=== PATIENT | male | born 1990 | race Hispanic/Latino ===

== ENCOUNTER 2017-07-26 10:39 | Emergency (ER) | payer OTHER ==
[~2017-07-26] VITALS: Ht 172.7 cm; Wt 58.2 kg
[~2017-07-26 10:39] MED LIST: ELIMITE5 % TOP; HYDROXYZ HCL25 MG PO; MOTRIN600 MG PO; NAPROSYN500 MG OR; TOBREX OPTH DROP5 ML OP; ULTRAM50 MG OR
[2017-07-26 11:19] LABS: HEMATOCRIT 45.8 % (39.0-50.0); HEMOGLOBIN 16.3 g/dl (14.0-18.0); IMMATURE GRANULOCYTES 0.4 % (0.0-1.0); MEAN CELL VOLUME 87.7 fL CALC (80.0-100.0); MEAN CORPUSCULAR HGB 31.2 pG CALC (26.0-32.0); MEAN CORPUSCULAR HGB CONC 35.6 g/L CALC (32.0-36.0); NEUT# 5.96 thou/uL (1.82-7.42); RED BLOOD COUNT 5.22 mill/uL (4.70-6.10); RED CELL DISTRI WIDTH 12.5 % (11.5-15.5)
[2017-07-26 11:38] LABS: ALKALINE PHOSPHATASE 91 u/l (38-126); ANION GAP 22 (6-22 (CALC)); BILIRUBIN, TOTAL 0.6 mg/dL (0.0-1.4); BUN 9 mg/dL (9-20); BUN/CREATININE RATIO 12 (12-20 (CALC)); CARBON DIOXIDE 24 mmol/l (22-30); CHLORIDE 106 mmol/l (95-108); CREATININE 0.8 mg/dL (0.7-1.3); GFR > 60 ML/MIN (>=60 (CALC)); GFR FOR AFR.AMER. > 60 ML/MIN (>=60 (CALC)); LIPASE 46 u/l (23-300); POTASSIUM 4.2 mmol/l (3.5-5.1); SGOT/AST 27 u/l (17-59); SGPT/ALT 32 u/l (21-72); SODIUM 147 mmol/l (137-146); TOTAL PROTEIN 8.1 g/dL (6.3-8.2)
[2017-07-26 12:56] LABS: BARBITURATES NEGATIVE (NEGATIVE); COCAINE NEGATIVE (NEGATIVE); METHADONE NEGATIVE (NEGATIVE); OXCYCODONE NEGATIVE (NEGATIVE); TETRAHYDROCANNABIONOL POSITIVE (NEGATIVE); TRICYLIC ANTIDEPRESSANTS NEGATIVE (NEGATIVE)
[2017-07-26] MEDS ORDERED: ONDANSETRON4 MG PO (13:33)
[2017-07-26] MEDS ORDERED: PROTONIX40 MG PO (13:33)
[2017-07-26 14:00] VITALS: BP 89/50
== END 2017-07-26 14:13 | disposition home or self-care (01) | DRG 392 ==
LOC: ED 10:39
PROVIDERS: Emergency Medicine
DX: K29.20 Alcoholic gastritis without bleeding (principal); R10.13 Epigastric pain; R11.2 Nausea with vomiting, unspecified

== ENCOUNTER 2020-03-11 04:37 | Emergency (ER) | payer SELFPAY ==
[~2020-03-11] VITALS: Ht 172.7 cm; Wt 59.0 kg
[~2020-03-11 04:37] MED LIST changes: +ONDANSETRON4 MG PO; +PROTONIX40 MG PO
[2020-03-11 05:18] LABS: HEMATOCRIT 51.4 % (39.0-50.0); HEMOGLOBIN 17.5 g/dl (14.0-18.0); IMMATURE GRANULOCYTES 0.2 % (0.0-5.0); MEAN CELL VOLUME 90.7 fL CALC (80.0-100.0); MEAN CORPUSCULAR HGB 30.9 pG CALC (26.0-32.0); NEUT# 11.01 thou/uL (1.82-7.42); RED BLOOD COUNT 5.67 mill/uL (4.70-6.10); RED CELL DISTRI WIDTH 12.1 % (11.5-15.5)
[2020-03-11 05:36] LABS: ALBUMIN 4.6 g/dL (3.2-5.0); ALKALINE PHOSPHATASE 79 u/l (38-126); AMYLASE 117 u/l (30-110); ANION GAP 13 (6-22 (CALC)); BILIRUBIN, TOTAL 0.7 mg/dL (0.0-1.4); BUN 14 mg/dL (9-20); BUN/CREATININE RATIO 14 (12-20 (CALC)); CARBON DIOXIDE 27 mmol/l (22-30); CHLORIDE 104 mmol/l (95-108); GFR > 60 ML/MIN (>=60 (CALC)); GFR FOR AFR.AMER. > 60 ML/MIN (>=60 (CALC)); LIPASE 71 u/l (23-300); POTASSIUM 3.5 mmol/l (3.5-5.1); SGOT/AST 32 u/l (17-59); SODIUM 141 mmol/l (137-146); TOTAL PROTEIN 7.7 g/dL (6.3-8.2)
[2020-03-11 07:12] LABS: URINE BILIRUBIN - DIPSTICK NEGATIVE (NEGATIVE); URINE BLOOD DIPSTICK TRACE-LYSED (NEGATIVE); URINE COLOR YELLOW; URINE GLUCOSE - DIPSTICK NEGATIVE (NEGATIVE); URINE KETONE TRACE mg/dL (NEGATIVE); URINE LEUK ESTERASE NEGATIVE (NEGATIVE); URINE NITRITE - DIPSTICK NEGATIVE (Negative); URINE PROTEIN - DIPSTICK NEGATIVE (NEG-TRACE); URINE UROBILINOGEN - DIPSTICK 0.2 E.U./dL (0.2)
[2020-03-11] MEDS ORDERED: ONDANSETRON4 MG PO (07:48)
[2020-03-11 08:00] VITALS: BP 112/68
== END 2020-03-11 08:00 | disposition home or self-care (01) | DRG 392 ==
LOC: ED 04:37
PROVIDERS: Emergency Medicine
DX: R10.13 Epigastric pain (principal); Z20.822 Contact with and (suspected) exposure to COVID-19
CPT/HCPCS: Q9967; S0164

== ENCOUNTER 2020-03-27 16:32 | Emergency (ER) | payer OTHER ==
[~2020-03-27] VITALS: Ht 172.7 cm; Wt 59.5 kg
[2020-03-27 20:06] VITALS: BP 112/76
== END 2020-03-27 20:06 | disposition home or self-care (01) | DRG 563 ==
LOC: ED 16:32
DX: S93.401A Sprain of unspecified ligament of right ankle, initial encounter (principal); X50.0XXA Overexertion from strenuous movement or load, initial encounter; X50.9XXA Other and unspecified overexertion or strenuous movements or postures, initial encounter; Y92.89 Other specified places as the place of occurrence of the external cause; Y99.0 Civilian activity done for income or pay

== ENCOUNTER 2021-03-11 15:23 | Emergency (ER) | payer OTHER ==
[~2021-03-11] VITALS: Ht 172.7 cm; Wt 60.0 kg
[2021-03-11 19:00] VITALS: BP 102/80
== END 2021-03-11 19:01 | disposition home or self-care (01) | DRG 552 ==
LOC: ED 15:23
DX: S16.1XXA Strain of muscle, fascia and tendon at neck level, initial encounter (principal); M54.6 Pain in thoracic spine; M54.50 Low back pain, unspecified; V49.40XA Driver injured in collision with unspecified motor vehicles in traffic accident, initial encounter

== ENCOUNTER 2022-09-08 18:03 | Inpatient (IN) | payer SELFPAY ==
[2022-09-08] VITALS (11 sets, daily range): BP systolic 91–121; BP diastolic 56–82
[~2022-09-08] VITALS: Ht 172.7 cm; Wt 51.2 kg
[2022-09-08 18:23] LABS: BASO% 0.4 % (0-3); EOS% 0.9 % (0-8); HEMOGLOBIN 15.8 g/dl (14.0-18.0); IMMATURE GRANULOCYTES 0.1 % (0.0-5.0); LYMPH% 10.6 % (15-41); MEAN CELL VOLUME 95.8 fL CALC (80.0-100.0); MEAN CORPUSCULAR HGB 33.4 pG CALC (26.0-32.0); MEAN CORPUSCULAR HGB CONC 34.9 g/dL CAL (32.0-36.0); MONO% 5.7 % (2-13); NEUT# 12.53 thou/uL (1.82-7.42); NEUT% 82.3 % (42-76); RED BLOOD COUNT 4.73 mill/uL (4.70-6.10); RED CELL DISTRI WIDTH 12.4 % (11.5-15.5)
[2022-09-08 18:24] LABS: HEMATOCRIT 45.3 % (39.0-50.0)
[2022-09-08 18:32] LABS: ALBUMIN 4.5 g/dL (3.2-5.0); ANION GAP 15 (6-22 (CALC)); BUN 6 mg/dL (9-20); BUN/CREATININE RATIO 7 (12-20 (CALC)); CARBON DIOXIDE 23 mmol/l (22-30); CHLORIDE 104 mmol/l (95-108); CREATININE 0.8 mg/dL (0.7-1.3); GFR FOR AFR.AMER. > 60 ML/MIN (>=60 (CALC)); GFR OTHER RACES > 60 ML/MIN (>=60 (CALC)); POTASSIUM 3.8 mmol/l (3.5-5.1); SODIUM 138 mmol/l (137-146); TOTAL PROTEIN 7.6 g/dL (6.3-8.2)
[2022-09-08 18:41] LABS: ALKALINE PHOSPHATASE 178 u/l (38-126); BILIRUBIN, TOTAL 1.3 mg/dL (0.2-1.3); LIPASE 2163 u/l (23-300); SGOT/AST 82 u/l (17-59)
[2022-09-09] VITALS (9 sets, daily range): BP systolic 100–127; BP diastolic 66–85
[2022-09-09 05:34] LABS: BASO% 0.3 % (0-3); IMMATURE GRANULOCYTES 0.2 % (0.0-5.0); LYMPH% 10.7 % (15-41); MEAN CELL VOLUME 98.5 fL CALC (80.0-100.0); MEAN CORPUSCULAR HGB CONC 34.5 g/dL CAL (32.0-36.0); MONO% 7.2 % (2-13); NEUT# 10.02 thou/uL (1.82-7.42); NEUT% 80.6 % (42-76); RED BLOOD COUNT 3.97 mill/uL (4.70-6.10); RED CELL DISTRI WIDTH 12.8 % (11.5-15.5)
[2022-09-09 05:39] LABS: ALKALINE PHOSPHATASE 120 u/l (38-126); ANION GAP 9 (6-22 (CALC)); BILIRUBIN, TOTAL 0.9 mg/dL (0.2-1.3); BUN 4 mg/dL (9-20); BUN/CREATININE RATIO 6 (12-20 (CALC)); CARBON DIOXIDE 26 mmol/l (22-30); CHLORIDE 105 mmol/l (95-108); CREATININE 0.7 mg/dL (0.7-1.3); GFR FOR AFR.AMER. > 60 ML/MIN (>=60 (CALC)); GFR OTHER RACES > 60 ML/MIN (>=60 (CALC)); HEMATOCRIT 39.1 % (39.0-50.0); HEMOGLOBIN 13.5 g/dl (14.0-18.0); POTASSIUM 3.6 mmol/l (3.5-5.1); SGOT/AST 51 u/l (17-59); SODIUM 136 mmol/l (137-146); TOTAL PROTEIN 6.2 g/dL (6.3-8.2)
[2022-09-09 05:47] LABS: ALBUMIN 3.4 g/dL (3.2-5.0); LIPASE 3389 u/l (23-300)
[2022-09-09 12:20] LABS: CHOLESTEROL HDL RATIO 2.1 (<4.4 (CALC))
[2022-09-09 13:42] LABS: URINE BILIRUBIN - DIPSTICK NEGATIVE (NEGATIVE); URINE BLOOD DIPSTICK SMALL (NEGATIVE); URINE COLOR YELLOW; URINE GLUCOSE - DIPSTICK NEGATIVE (NEGATIVE); URINE KETONE 40 mg/dL (NEGATIVE); URINE LEUK ESTERASE NEGATIVE (NEGATIVE); URINE PROTEIN - DIPSTICK NEGATIVE (NEG-TRACE); URINE UROBILINOGEN - DIPSTICK 0.2 E.U./dL (0.2)
[2022-09-09 13:45] LABS: URINE NITRITE - DIPSTICK NEGATIVE (Negative)
[2022-09-09 13:52] LABS: URINE RBC 0-2 RBC/hpf (0-5)
== END 2022-09-09 17:04 | disposition home or self-care (01) | DRG 440 ==
LOC: ED 18:03 → ED-I 23:00 → ED 09-09 00:37 → MS2 09-09 00:38
PROVIDERS: Family Medicine; Internal Medicine; ADMIT Internal Medicine; ATTEND Internal Medicine
DX: K85.90 Acute pancreatitis without necrosis or infection, unspecified (principal)
CPT/HCPCS: Q9967

== ENCOUNTER 2022-10-20 15:30 | Inpatient (IN) | payer OTHER ==
[~2022-10-20] VITALS: Ht 172.7 cm; Wt 56.0 kg
[2022-10-20] VITALS (17 sets, daily range): BP systolic 108–145; BP diastolic 77–121
[2022-10-20 16:27] LABS: BASO% 0.2 % (0-3); EOS% 1.2 % (0-8); IMMATURE GRANULOCYTES 0.2 % (0.0-5.0); LYMPH% 11.7 % (15-41); MEAN CORPUSCULAR HGB 33.8 pG CALC (26.0-32.0); MEAN CORPUSCULAR HGB CONC 34.5 g/dL CAL (32.0-36.0); MONO% 5.2 % (2-13); NEUT# 13.93 thou/uL (1.82-7.42); NEUT% 81.5 % (42-76); RED BLOOD COUNT 4.91 mill/uL (4.70-6.10); RED CELL DISTRI WIDTH 12.2 % (11.5-15.5)
[2022-10-20 16:32] LABS: HEMATOCRIT 48.1 % (39.0-50.0); HEMOGLOBIN 16.6 g/dl (14.0-18.0)
[2022-10-20 16:47] LABS: AMYLASE 721 u/l (30-110); BILIRUBIN, TOTAL 1.2 mg/dL (0.2-1.3); BUN 8 mg/dL (9-20); BUN/CREATININE RATIO 8 (12-20 (CALC)); CARBON DIOXIDE 23 mmol/l (22-30); CHLORIDE 102 mmol/l (95-108); GFR FOR AFR.AMER. > 60 ML/MIN (>=60 (CALC)); GFR OTHER RACES > 60 ML/MIN (>=60 (CALC)); SGOT/AST 64 u/l (17-59); SODIUM 135 mmol/l (137-146)
[2022-10-20 16:54] LABS: ALBUMIN 4.8 g/dL (3.2-5.0); ALKALINE PHOSPHATASE 183 u/l (38-126); ANION GAP 15 (6-22 (CALC)); POTASSIUM 4.6 mmol/l (3.5-5.1); TOTAL PROTEIN 8.5 g/dL (6.3-8.2)
[2022-10-20 17:05] LABS: LIPASE 7901 u/l (23-300)
[2022-10-20 19:29] LABS: URINE BILIRUBIN - DIPSTICK Negative (NEGATIVE); URINE BLOOD DIPSTICK Small (NEGATIVE); URINE GLUCOSE - DIPSTICK Negative (NEGATIVE); URINE KETONE 40 mg/dL (NEGATIVE); URINE LEUK ESTERASE Negative (NEGATIVE); URINE NITRITE - DIPSTICK Negative (Negative); URINE PROTEIN - DIPSTICK Negative (NEG-TRACE); URINE SPECIFIC GRAVITY 1.015; URINE UROBILINOGEN - DIPSTICK 0.2 E.U./dL (0.2)
[2022-10-20 19:30] LABS: URINE COLOR Yellow; URINE WBC 0-2 WBC/hpf (0-5)
[2022-10-21] VITALS (30 sets, daily range): BP systolic 107–120; BP diastolic 71–84
[2022-10-21 08:22] LABS: MEAN CELL VOLUME 100.7 fL CALC (80.0-100.0); MEAN CORPUSCULAR HGB CONC 33.7 g/dL CAL (32.0-36.0); RED BLOOD COUNT 4.15 mill/uL (4.70-6.10); RED CELL DISTRI WIDTH 12.5 % (11.5-15.5)
[2022-10-21 08:27] LABS: HEMATOCRIT 41.8 % (39.0-50.0); HEMOGLOBIN 14.1 g/dl (14.0-18.0)
[2022-10-21 08:45] LABS: ALKALINE PHOSPHATASE 115 u/l (38-126); ANION GAP 11 (6-22 (CALC)); BUN 5 mg/dL (9-20); BUN/CREATININE RATIO 6 (12-20 (CALC)); CARBON DIOXIDE 24 mmol/l (22-30); CHLORIDE 106 mmol/l (95-108); CREATININE 0.8 mg/dL (0.7-1.3); GFR FOR AFR.AMER. > 60 ML/MIN (>=60 (CALC)); GFR OTHER RACES > 60 ML/MIN (>=60 (CALC)); MAGNESIUM 1.6 mg/dL (1.6-2.3); SGOT/AST 38 u/l (17-59); SODIUM 136 mmol/l (137-146)
[2022-10-21 08:52] LABS: ALBUMIN 3.6 g/dL (3.2-5.0)
== END 2022-10-21 14:40 | disposition home or self-care (01) | DRG 440 ==
LOC: ED 15:30 → ED-I 18:15 → ED 19:53 → ICU 19:54
PROVIDERS: Nurse Practitioner; ADMIT Internal Medicine; ATTEND Student in an Organized Health Care Education/Training Program
DX: K85.20 Alcohol induced acute pancreatitis without necrosis or infection (principal); E86.0 Dehydration; F17.290 Nicotine dependence, other tobacco product, uncomplicated
CPT/HCPCS: J1650; Q9967

== ENCOUNTER 2023-10-10 23:37 | Emergency (ER) | payer SELFPAY ==
[~2023-10-10] VITALS: Ht 175.3 cm; Wt 59.0 kg
[~2023-10-10 23:37] MED LIST changes: +FOLIC ACID1 M1 PO; +LORTAB5 PO; +NAPRELAN500 MG PO; +PROTONIX40 M2 PO; +TRAMADOL HYDROC PO; +VITAMIN B-1100 M1 PO
[2023-10-10 23:45] VITALS: BP 133/112
[2023-10-10] MEDS ORDERED: HYDROmorphone HCL 2 MG/AMP IV STA (23:52)
[2023-10-10] MEDS ORDERED: ONDANSETRON HCl 4 MG/2 ML SDV IV STA (23:52)
[2023-10-10] MEDS ORDERED: LACTATED RINGER'S 1,000 ML IV STA (23:52)
[2023-10-11 00:15] LABS: BASO% 0.4 % (0-3); EOS% 2.4 % (0-8); IMMATURE GRANULOCYTES 0.5 % (0.0-5.0); LYMPH% 15.4 % (15-41); MEAN CORPUSCULAR HGB 32.3 pG CALC (26.0-32.0); MEAN CORPUSCULAR HGB CONC 33.7 g/dL CAL (32.0-36.0); NEUT# 8.13 thou/uL (1.82-7.42); NEUT% 73.3 % (42-76); RED BLOOD COUNT 4.98 mill/uL (4.70-6.10); RED CELL DISTRI WIDTH 12.8 % (11.5-15.5)
[2023-10-11 00:19] LABS: HEMATOCRIT 47.8 % (39.0-50.0); HEMOGLOBIN 16.1 g/dl (14.0-18.0)
[2023-10-11 00:23] LABS: BILIRUBIN, TOTAL 0.9 mg/dL (0.2-1.3); POTASSIUM 4.2 mmol/l (3.5-5.1)
[2023-10-11 00:24] LABS: ALBUMIN 4.5 g/dL (3.2-5.0); TOTAL PROTEIN 7.5 g/dL (6.3-8.2)
[2023-10-11 00:30] VITALS: BP 115/80
[2023-10-11 00:31] LABS: ETHYL ALCOHOL 0 mg/dl (0-30)
[2023-10-11] MEDS ORDERED: FAMOTIDINE 10MG/ML 2ML SDV IV ONE (01:55)
[2023-10-11] MEDS ORDERED: Pantoprazole Sodium 40 MG VIAL (Protonix) IV ONE (01:55)
[2023-10-11] MEDS ORDERED: KETOROLAC TROMETHAMINE 30 MG/ML SDV IV ONE (01:55)
[2023-10-11 02:28] LABS: URINE BLOOD DIPSTICK Moderate (NEGATIVE); URINE GLUCOSE - DIPSTICK Negative (NEGATIVE); URINE KETONE 40 mg/dL (NEGATIVE); URINE LEUK ESTERASE Negative (NEGATIVE); URINE NITRITE - DIPSTICK Negative (Negative); URINE PROTEIN - DIPSTICK Negative (NEG-TRACE); URINE UROBILINOGEN - DIPSTICK 0.2 E.U./dL (0.2)
[2023-10-11 02:36] LABS: URINE COLOR Yellow
[2023-10-11] MEDS ORDERED: HYDROcodone/Acetaminophen 1 COMBO TAB PO ONE (02:40)
[2023-10-11 02:44] LABS: URINE BACTERIA FEW hpf; URINE SQUAMOUS EPITHELIAL CELL FEW EPI/hpf (0-FEW)
[2023-10-11] MEDS ORDERED: AMOX/K CLAV875 M1 PO (02:47)
[2023-10-11] MEDS ORDERED: DICYCLOMINE HCL20 MG PO (02:47)
[2023-10-11] MEDS ORDERED: ZOFRAN4 MG/TAB PO (02:47)
[2023-10-11] MEDS ORDERED: LORTAB 1010 MG PO (02:47)
[2023-10-11 03:33] VITALS: BP 115/80
[2023-10-12] MEDS ORDERED: PROTONIX40 M2 PO (09:03)
== END 2023-10-11 03:33 | disposition home or self-care (01) | DRG 439 ==
LOC: ED 23:37
PROVIDERS: Emergency Medicine
DX: K85.20 Alcohol induced acute pancreatitis without necrosis or infection (principal); K82.1 Hydrops of gallbladder; F10.10 Alcohol abuse, uncomplicated
CPT/HCPCS: J2470; Q9967

== ENCOUNTER 2023-10-11 09:51 | Observation (INO) | payer SELFPAY ==
[2023-10-11] VITALS (27 sets, daily range): BP systolic 103–148; BP diastolic 67–101
[~2023-10-11] VITALS: Ht 175.3 cm; Wt 54.4 kg
[~2023-10-11 09:51] MED LIST changes: +AMOX/K CLAV875 M1 PO; +DICYCLOMINE HCL20 MG PO; +LORTAB 1010 MG PO; +ZOFRAN4 MG/TAB PO
[2023-10-11] MEDS ORDERED: SODIUM CHLORIDE 0.9% 1,000 ML IV STA (10:09)
[2023-10-11] MEDS ORDERED: ONDANSETRON HCl 4 MG/2 ML SDV IV STA ×2 (10:09→14:53)
[2023-10-11] MEDS ORDERED: Pantoprazole Sodium 40 MG VIAL (Protonix) IV STA (10:09)
[2023-10-11 10:22] LABS: BASO% 0.4 % (0-3); EOS% 2.8 % (0-8); HEMATOCRIT 47.1 % (39.0-50.0); HEMOGLOBIN 16.1 g/dl (14.0-18.0); IMMATURE GRANULOCYTES 0.1 % (0.0-5.0); MEAN CELL VOLUME 96.7 fL CALC (80.0-100.0); MEAN CORPUSCULAR HGB 33.1 pG CALC (26.0-32.0); MEAN CORPUSCULAR HGB CONC 34.2 g/dL CAL (32.0-36.0); NEUT# 7.93 thou/uL (1.82-7.42); NEUT% 72.7 % (42-76); RED BLOOD COUNT 4.87 mill/uL (4.70-6.10); RED CELL DISTRI WIDTH 12.7 % (11.5-15.5)
[2023-10-11 10:33] LABS: ALBUMIN 4.4 g/dL (3.2-5.0); BILIRUBIN, TOTAL 0.8 mg/dL (0.2-1.3); CREATININE 0.9 mg/dL (0.7-1.3); POTASSIUM 3.8 mmol/l (3.5-5.1); TOTAL PROTEIN 7.4 g/dL (6.3-8.2)
[2023-10-11] MEDS ORDERED: MORPHINE SULFATE 4 MG/ML VIAL IV ONE (11:40)
[2023-10-11] MEDS ORDERED: PROMETHAZINE HCL 25 MG/ML AMP IV ONE (11:40)
[2023-10-11 14:12] LABS: URINE BLOOD DIPSTICK Moderate (NEGATIVE); URINE GLUCOSE - DIPSTICK Negative (NEGATIVE); URINE KETONE >=160 mg/dL (NEGATIVE); URINE LEUK ESTERASE Negative (NEGATIVE); URINE NITRITE - DIPSTICK Negative (Negative); URINE PROTEIN - DIPSTICK 30 mg/dL (NEG-TRACE); URINE SPECIFIC GRAVITY 1.025; URINE UROBILINOGEN - DIPSTICK 0.2 E.U./dL (0.2)
[2023-10-11 14:13] LABS: URINE COLOR Yellow
[2023-10-11] MEDS ORDERED: ONDANSETRON HCl 4 MG/2 ML SDV IV PRN (15:25)
[2023-10-11] MEDS ORDERED: ACETAMINOPHEN 325 MG/TAB PO PRN (15:25)
[2023-10-11] MEDS ORDERED: MORPHINE SULFATE 4 MG/ML VIAL IV PRN (15:25)
[2023-10-11] MEDS ORDERED: MAGNESIUM HYDROXIDE 30 ML UDC PO PRN (15:25)
[2023-10-11] MEDS ORDERED: LACTATED RINGER'S 1,000 ML IV PRN (15:25)
[2023-10-11] MEDS ORDERED: KETOROLAC TROMETHAMINE 30 MG/ML SDV IV PRN (15:30)
[2023-10-11] MEDS ORDERED: METOCLOPRAMIDE HCL 10 MG/2 ML SDV IV PRN (15:30)
[2023-10-11] MEDS ORDERED: DEXAMETHASONE SODIUM PHOSPHATE 4 MG/VIAL SDV IV ONE (15:30)
[2023-10-11] MEDS ORDERED: ENOXAPARIN SODIUM 40 MG/0.4 ML SYR SC SCH (21:00)
[2023-10-11] MEDS ORDERED: Pantoprazole Sodium 40 MG VIAL (Protonix) IV SCH (21:00)
[2023-10-12 00:15] VITALS: BP 106/70
[2023-10-12 04:01] VITALS: BP 111/74
[2023-10-12 05:56] LABS: BASO% 0.2 % (0-3); EOS% 0.2 % (0-8); HEMOGLOBIN 14.2 g/dl (14.0-18.0); IMMATURE GRANULOCYTES 0.1 % (0.0-5.0); LYMPH% 14.5 % (15-41); MEAN CELL VOLUME 96.7 fL CALC (80.0-100.0); MEAN CORPUSCULAR HGB 33.5 pG CALC (26.0-32.0); MEAN CORPUSCULAR HGB CONC 34.6 g/dL CAL (32.0-36.0); MONO% 5.9 % (2-13); NEUT# 6.83 thou/uL (1.82-7.42); NEUT% 79.1 % (42-76); RED BLOOD COUNT 4.24 mill/uL (4.70-6.10); RED CELL DISTRI WIDTH 12.6 % (11.5-15.5)
[2023-10-12 06:22] LABS: ALBUMIN 3.1 g/dL (3.2-5.0); BILIRUBIN, TOTAL 0.6 mg/dL (0.2-1.3); CREATININE 0.7 mg/dL (0.7-1.3); MAGNESIUM 1.7 mg/dL (1.6-2.3); POTASSIUM 4.4 mmol/l (3.5-5.1); TOTAL PROTEIN 5.6 g/dL (6.3-8.2)
[2023-10-12 07:05] VITALS: BP 104/66
[2023-10-12 08:08] LABS: AMYLASE 162 u/l (30-110); LIPASE 196 u/l (23-300)
[2023-10-12] MEDS ORDERED: PROTONIX40 M2 PO (09:03)
[2023-10-12 10:35] VITALS: BP 106/64
== END 2023-10-12 13:52 | disposition home or self-care (01) | DRG 391 ==
LOC: ED 09:51 → ED-I 14:20 → ED 14:42 → MS2 14:43
PROVIDERS: Emergency Medicine; Nurse Practitioner Family; ADMIT Student in an Organized Health Care Education/Training Program; ATTEND Student in an Organized Health Care Education/Training Program
DX: K29.70 Gastritis, unspecified, without bleeding (principal); K85.20 Alcohol induced acute pancreatitis without necrosis or infection; K82.1 Hydrops of gallbladder; F10.10 Alcohol abuse, uncomplicated; R10.9 Unspecified abdominal pain
CPT/HCPCS: G0378; J1650; J2470; Q9967

== ENCOUNTER 2024-04-10 20:27 | Emergency (ER) | payer SELFPAY ==
[~2024-04-10] VITALS: Ht 175.3 cm; Wt 59.0 kg
[2024-04-10 22:38] VITALS: BP 113/76
== END 2024-04-10 22:36 | disposition home or self-care (01) | DRG 563 ==
LOC: ED 20:27
DX: S93.401A Sprain of unspecified ligament of right ankle, initial encounter (principal); W17.2XXA Fall into hole, initial encounter; Y92.61 Building [any] under construction as the place of occurrence of the external cause

== ENCOUNTER 2024-04-18 22:00 | Emergency (ER) | payer OTHER ==
[~2024-04-18] VITALS: Ht 175.3 cm; Wt 56.0 kg
[2024-04-18 22:14] VITALS: BP 121/92
[2024-04-18 22:30] VITALS: BP 120/83
[2024-04-18 22:45] VITALS: BP 112/78
[2024-04-18 23:00] VITALS: BP 110/81
[2024-04-18] MEDS ORDERED: VOLTAREN - GENE75 MG PO (23:09)
[2024-04-18 23:15] VITALS: BP 118/77
[2024-04-18 23:18] VITALS: BP 118/77
== END 2024-04-18 23:25 | disposition home or self-care (01) | DRG 563 ==
LOC: ED 22:00
DX: S93.401A Sprain of unspecified ligament of right ankle, initial encounter (principal); X58.XXXA Exposure to other specified factors, initial encounter

== ENCOUNTER 2024-05-21 00:58 | Emergency (ER) | payer OTHER ==
[~2024-05-21] VITALS: Ht 175.3 cm; Wt 68.0 kg
[~2024-05-21 00:58] MED LIST changes: +VOLTAREN - GENE75 MG PO
[2024-05-21] MEDS ORDERED: oxyCODONE 5MG/ ACETAMINOPHEN 325MG TAB PO ONE (01:10)
[2024-05-21 01:39] LABS: URINE BILIRUBIN - DIPSTICK Negative (NEGATIVE); URINE BLOOD DIPSTICK Trace-lysed (NEGATIVE); URINE COLOR Yellow; URINE GLUCOSE - DIPSTICK Negative (NEGATIVE); URINE KETONE Negative (NEGATIVE); URINE LEUK ESTERASE Negative (NEGATIVE); URINE NITRITE - DIPSTICK Negative (Negative); URINE PROTEIN - DIPSTICK Negative (NEG-TRACE); URINE UROBILINOGEN - DIPSTICK 0.2 E.U./dL (0.2)
[2024-05-21 03:59] VITALS: BP 131/89
[2024-05-21] MEDS ORDERED: CEPHALEXIN500 M1 PO (14:12)
[2024-05-21] MEDS ORDERED: TORADOL PO (14:21)
== END 2024-05-21 03:59 | DRG 897 ==
LOC: ED 00:58
PROVIDERS: Family Medicine
DX: F10.129 Alcohol abuse with intoxication, unspecified (principal); Y90.7 Blood alcohol level of 200-239 mg/100 ml; S00.31XA Abrasion of nose, initial encounter; S00.81XA Abrasion of other part of head, initial encounter; Y04.8XXA Assault by other bodily force, initial encounter

== ENCOUNTER 2024-05-21 10:44 | Emergency (ER) | payer OTHER ==
[~2024-05-21] VITALS: Ht 175.3 cm; Wt 57.0 kg
[2024-05-21] VITALS (14 sets, daily range): BP systolic 96–126; BP diastolic 63–99
[2024-05-21] MEDS ORDERED: KETOROLAC TROMETHAMINE 30 MG/ML SDV IM ONE (11:55)
[2024-05-21] MEDS ORDERED: CEPHALEXIN500 M1 PO (14:12)
[2024-05-21] MEDS ORDERED: TORADOL PO (14:21)
== END 2024-05-21 14:22 | disposition home or self-care (01) | DRG 556 ==
LOC: ED 10:44
DX: M25.512 Pain in left shoulder (principal); M25.511 Pain in right shoulder; S00.81XA Abrasion of other part of head, initial encounter; Y04.8XXA Assault by other bodily force, initial encounter